=== PATIENT | male | born 1965 | race Caucasian/White ===

== ENCOUNTER 2017-08-20 18:19 | Emergency (ER) | payer OTHER, MEDICAID, SELFPAY ==
[2017-08-20 18:25] VITALS: BP 138/87; PULSE 83; RESP 12; TEMP 37.1; O2SAT 98; BMI 22.9
--- NOTE | 2017-08-20 18:32 | ED_ITS ---
HPI - Eye Problem <CALI Serrato - Last Filed: 08/20/17 22:12> General Chief complaint: Eye Problems Stated complaint: SOMETHING IN LEFT EYE Time Seen by Provider: 08/20/17 18:48 History of Present Illness HPI Narrative: 52-year-old here for complaint of left eye pain. 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 He states that after this he rubbed his left eye and has felt like he has had a foreign body in his left eye since then there is this comfort to his left eye. He denies any visual changes. He denies any trauma no other concerns or complaints. He reports he does not know when his last tetanus was Related Data Patient tetanus UTD: No Previous Rx's Medication Instructions Recorded tramadol 0 mg PO Q4HP PRN #16 tab 12/23/15 erythromycin 0.5 inch EYE-LEFT TID 7 Days #1 08/20/17 gram Allergies Allergy/AdvReac Type Severity Reaction Status Date / Time No Known Drug Allergies Allergy Verified 08/20/17 18:32 Review of Systems <CALI Serrato - Last Filed: 08/20/17 22:12> Constitutional Denies chills, Denies fatigue, Denies fever(s), Denies lethargy and Denies weakness Eyes Reports irritation and Reports eye pain ENT Ears, Nose, Mouth, and Throat: Denies change in voice, Denies neck pain and Denies sore throat Musculoskeletal Denies neck pain Integumentary/Breasts Denies pruritus, Denies erythema, Denies rash and Denies wounds Neurologic Denies weakness Endocrine Denies fatigue and Denies flushing Hematologic/Lymphatic Denies easy bruising Exam <CALI Serrato - Last Filed: 08/20/17 22:12> Initial Vital Signs Initial Vital Signs: Vital Signs Temperature 98.8 F 08/20/17 18:25 Pulse Rate 83 08/20/17 18:25 Respiratory Rate 12 08/20/17 18:25 Blood Pressure 138/87 H 08/20/17 18:25 Pulse Oximetry 98 08/20/17 18:25 Const General: cooperative and well developed Nutritional Appearance: well nourished Orientation: alert, awake, oriented x3 and not confused HENMT Mouth: oral mucosae normal, oropharynx normal and moist mucous membranes Eyes Eyelids: eyelids normal Sclera: scleral abnormality (Left eye injected) left Cornea: fluorescein used and other (Fluorescein exam shows corneal abrasion to the 9:00 position ) Pupils: PERRL EOM: EOM intact bilaterally Other: No form bodies identified on eye exam <Jimmie Beasley DO - Last Filed: 08/21/17 03:22> Initial Vital Signs Initial Vital Signs: Vital Signs Temperature 98.8 F 08/20/17 18:25 Pulse Rate 83 08/20/17 18:25 Respiratory Rate 12 08/20/17 18:25 Blood Pressure 138/87 H 08/20/17 18:25 Pulse Oximetry 98 08/20/17 18:25 Course <CALI Serrato - Last Filed: 08/20/17 22:12> Orders Ordered: Discontinued Medications Diphtheria/Tetanus/Acell Pertussis (Adacel) 0.5 ml IM .ONCE ONE Stop: 08/20/17 20:00 Last Admin: 08/20/17 20:07 Dose: 0.5 ml Erythromycin (Erythromycin Ophth Oint) 1 applic EYE-LEFT NOW ONE Stop: 08/20/17 20:14 Last Admin: 08/20/17 20:20 Dose: 1 applic Proparacaine HCl (Parcaine 0.5% Ophth Thania) 2 drops EYE-LEFT NOW ONE Stop: 08/20/17 18:38 Last Admin: 08/20/17 18:38 Dose: 2 drops Vital Signs - 8 hr 08/20/17 19:25 08/20/17 20:16 Temperature 98.8 F Pulse Rate 83 63 Respiratory Rate 12 20 Blood Pressure 138/87 H Blood Pressure [Left Arm] 138/89 H Pulse Oximetry 98 100 <Jimmie Beasley DO - Last Filed: 08/21/17 03:22> Orders Ordered: Discontinued Medications Diphtheria/Tetanus/Acell Pertussis (Adacel) 0.5 ml IM .ONCE ONE Stop: 08/20/17 20:00 Last Admin: 08/20/17 20:07 Dose: 0.5 ml Erythromycin (Erythromycin Ophth Oint) 1 applic EYE-LEFT NOW ONE Stop: 08/20/17 20:14 Last Admin: 08/20/17 20:20 Dose: 1 applic Proparacaine HCl (Parcaine 0.5% Ophth Thania) 2 drops EYE-LEFT NOW ONE Stop: 08/20/17 18:38 Last Admin: 08/20/17 18:38 Dose: 2 drops Vital Signs - 8 hr 08/20/17 19:25 08/20/17 20:16 Temperature 98.8 F Pulse Rate 83 63 Respiratory Rate 12 20 Blood Pressure 138/87 H Blood Pressure [Left Arm] 138/89 H Pulse Oximetry 98 100 MDM - Eye Problem <CALI Serrato - Last Filed: 08/20/17 22:12> MDM Narrative Medical decision making narrative: Fluorescein exam shows corneal abrasion to the left eye. He is placed on erythromycin ointment antibiotics. Over-the- counter Tylenol or Motrin as needed for any discomfort. Tetanus is updated in the emergency room. Follow up with primary care provider in the next few days for re-evaluation. For any worsening symptoms return to the emergency room. Discharge Plan Departure Patient Disposition: Home, Self-Care Clinical Impression: Corneal abrasion Discharge Date/Time: 08/20/17 20:26 Interventions: ED Discharge Assessment Last Done: 08/20/17 20:24 Instructions: DI for Corneal Abrasion Activity Restrictions/Additional Instructions: On exam left eye was free of foreign bodies however there is a corneal abrasion a most likely due to the dirt scratch in the cornea. You have been placed on an antibiotic to prevent infection use as directed. Use [id number] Tylenol and Motrin as needed for discomfort. Follow up with primary care provider. Return emergency room for any worsening symptoms. Tetanus was updated in the emergency room today. Prescriptions: New erythromycin 5 mg/gram (0.5 %) ointment 0.5 inch EYE-LEFT TID 7 Days Qty: 1 RF: 0 No Action tramadol 50 MG tablet PO Q4HP PRNQty: 16 RF: 0 Referrals: [facility] [Provider Group] Stand Alone Forms: Work/School Restrictions <Jimmie Beasley DO - Last Filed: 08/21/17 03:22> Cosign ED Attending Lottie Attestation: I was immediately available in the department for consultation. Documentation has been reviewed. I agree with assessment and plan.
[2017-08-20] MEDS: PROPARACAINE 0.5% OPHTH SOL 2 DROPS EYE-LEFT (18:38)
[2017-08-20 19:25] VITALS: BP 138/87; PULSE 83; RESP 12; TEMP 37.1; O2SAT 98; BMI 22.9
[2017-08-20] MEDS: TET,DIPH,PERTUSS(ACELL),VAC/PF 0.5 ML SYRINGE IM (20:07)
[2017-08-20 20:16] VITALS: BP 138/89; PULSE 63; RESP 20; O2SAT 100
[2017-08-20] MEDS: ERYTHROMYCIN OPHTH 1 GM OINT 1 APPLIC EYE-LEFT (20:20)
== END 2017-08-20 20:26 | disposition home or self-care (01) ==
PROVIDERS: Emergency Provider Nurse Practitioner Family
DX: S05.02XA Injury of conjunctiva and corneal abrasion without foreign body, left eye, initial encounter (principal); X58.XXXA Exposure to other specified factors, initial encounter; Y99.0 Civilian activity done for income or pay
CPT/HCPCS: 90471; 99283; 90715